=== PATIENT | male | born 1940 | race Caucasian/White ===

== ENCOUNTER 2022-06-30 11:25 | Emergency (ER) | payer OTHER ==
[2022-06-30 12:38] LABS: ANION GAP 10.7 mmol/L (5-15); CHLORIDE,CL 103 mmol/L (98-107); ESTIMATED GFR 86 mL/min (>=60); SODIUM,NA 139 mmol/L (136-145)
== END 2022-06-30 13:05 | disposition home or self-care (01) ==
LOC: VM.ED 11:25
DX: L25.9 Unspecified contact dermatitis, unspecified cause (principal); I10 Essential (primary) hypertension
CPT/HCPCS: 36415; 71045; 80053; 83735; 84100; 84443; 84484; 85025; 86140; 93005; 93010; 99284